=== PATIENT | female | born 1990 | race Caucasian/White ===

== ENCOUNTER 2018-04-07 10:18 | Inpatient (IN) | payer BC ==
[2018-04-07] MEDS ORDERED: Promethazine HCl 25 MG/ML VIAL IM PRN ×2 (10:58→12:29)
[2018-04-07] MEDS ORDERED: Diphenoxylate HCl/Atropine Tablet PO PRN ×2 (10:58)
[2018-04-07] MEDS ORDERED: Butorphanol Tartrate 1 MG/ML VIAL SLOW IVP PRN (10:58)
[2018-04-07] MEDS ORDERED: Ibuprofen 800 MG TAB PO PRN (10:58)
[2018-04-07] MEDS ORDERED: Lidocaine 1% (PF) 30 ML VIAL SC PRN (10:58)
[2018-04-07] MEDS ORDERED: Acetaminophen 500 MG TAB PO PRN (10:58)
[2018-04-07] MEDS ORDERED: Docusate 100 MG CAP PO PRN (10:58)
[2018-04-07] MEDS ORDERED: Misoprostol 200 MCG TAB PR PRN (10:58)
[2018-04-07] MEDS ORDERED: HYDROcodone/Acetaminophen 5/325 mg Tablet PO PRN ×2 (10:58)
[2018-04-07] MEDS ORDERED: Ondansetron PF 4 MG/2 ML Vial IVP PRN ×3 (10:58→17:34)
[2018-04-07] MEDS ORDERED: NS / Oxytocin 40 units/1000ml 1,000 ML IV PRN (10:58)
[2018-04-07] MEDS ORDERED: Penicillin G Potassium 5 MILL.UNITS in Sodium Chloride 0.9% 100 ML IVPB SCH (11:00)
[2018-04-07] MEDS ORDERED: Fentanyl 4 mcg/Bup 0.1% Cadd 100 ML ONE (11:22)
[2018-04-07] MEDS: Lactated Ringer's 1,000 ML IV SCH ×2 (11:36→14:05)
[2018-04-07 11:40] VITALS: BMI 31.1
[2018-04-07 11:57] LABS: Hemoglobin 12.6 g/dL (12.0-16.0); Mean Corpuscular HGB CONC 33.1 g/dL (32.0-36.0); Mean Corpuscular Hemoglobin 29.1 pg (27.0-31.0); Mean Corpuscular Volume 87.7 fL (78.0-98.0); Platelet Count 168 thou/uL (130-400); RBC Distribution Width 11.6 % (11.5-14.5); Red Blood Cell (RBC) Count 4.35 mill/uL (4.20-5.40); White Blood Cell (WBC) Count 10.9 thou/uL (4.8-10.8)
[2018-04-07] MEDS ORDERED: ePHEDrine/0.9% NaCl/PF SYRINGE 50 mg/10 ml SLOW IVP PRN (12:29)
[2018-04-07] MEDS ORDERED: Lactated Ringer's 500 ML IV PRN (12:29)
[2018-04-07] MEDS ORDERED: Naloxone HCl 0.4 mg/ml Vial IVP PRN ×2 (12:29)
[2018-04-07] MEDS ORDERED: Eucerin (Mineral Oil/Petrolatum,White) 30 gm Jar TOP PRN (12:29)
[2018-04-07] MEDS ORDERED: Acetaminophen 325 MG TAB PO PRN (12:29)
[2018-04-07] MEDS ORDERED: diphenhydrAMINE 50 MG/ML VIAL IVP PRN (12:29)
[2018-04-07] MEDS ORDERED: Fentanyl 4 mcg/Bupivacaine 0.1% Cassette 100 ML EPIDURAL SCH (12:30)
[2018-04-07] MEDS ORDERED: Communication Order-Pharmacy FS SCH (12:30)
[2018-04-07 12:35] LABS: Hep B Surf Ag Non-Reactive S/CO (NonReactive); Syphilis Antibody Nonreactive (Nonreactive); Syphilis Antibody Index 0.07 S/CO (<1.00 Non-Reactive)
[2018-04-07] MEDS ORDERED: Penicillin G 2.5 MILL.units 2.5 MILL.UNITS in Premix Bag 1 BAG IVPB SCH (13:00)
[2018-04-07] MEDS ORDERED: NS w/ Oxytocin 10 units 500 ML IV SCH ×2 (13:45)
[2018-04-07] MEDS ORDERED: NS w/ Oxytocin 10 units 500 ML ONE (13:47)
[2018-04-07] MEDS ORDERED: Misoprostol 200 MCG TAB VAG PRN (17:34)
[2018-04-07] MEDS ORDERED: Milk Of Magnesia 30 ML UDCUP PO PRN (17:34)
[2018-04-07] MEDS ORDERED: Lanolin Ointment 7 GM TUBE TOP PRN (17:34)
[2018-04-07] MEDS ORDERED: Adacel (T-DAP) 0.5 ML VIAL IM ONE (17:34)
[2018-04-07] MEDS ORDERED: diphenhydrAMINE 25 MG CAP PO PRN (17:34)
[2018-04-07] MEDS ORDERED: Bisacodyl 10 MG SUPP PR PRN (17:34)
[2018-04-07] MEDS ORDERED: Zolpidem Tartrate 5 MG TAB PO PRN (17:34)
[2018-04-07] MEDS ORDERED: Acetaminophen/Codeine 30-300mg Tablet PO PRN ×2 (17:34)
[2018-04-07] MEDS ORDERED: Benzocaine/Menthol 20-0.5% 60 ML CAN TOP PRN (17:34)
[2018-04-07] MEDS ORDERED: Preparation H Ointment 28 GM TUBE PR PRN (17:34)
[2018-04-07] MEDS ORDERED: NS / Oxytocin 40 units/1000ml 1,000 ML IV SCH (17:45)
[2018-04-07] MEDS: Ibuprofen 800 MG TAB PO SCH (22:19)
[2018-04-07] MEDS: Docusate Calcium (SURFAK) 240 MG CAP PO SCH (22:19)
[2018-04-08] MEDS: Ibuprofen 800 MG TAB PO SCH ×3 (05:00→20:59)
[2018-04-08 06:20] LABS: Mean Corpuscular HGB CONC 31.7 g/dL (32.0-36.0); Mean Corpuscular Hemoglobin 27.9 pg (27.0-31.0); Mean Corpuscular Volume 87.9 fL (78.0-98.0); Mean Platelet Volume 7.4 fL (7.4-10.4); Platelet Count 178 thou/uL (130-400); RBC Distribution Width 11.5 % (11.5-14.5); White Blood Cell (WBC) Count 12.7 thou/uL (4.8-10.8)
[2018-04-08] MEDS: Ferrous Sulfate 325 MG TAB PO SCH ×2 (08:27→17:04)
[2018-04-08] MEDS: Docusate Calcium (SURFAK) 240 MG CAP PO SCH ×2 (09:54→20:59)
[2018-04-08] MEDS ORDERED: Bupivacaine/Epinephrine 0.25% 30 ML VIAL ONE (18:00)
[2018-04-09] MEDS: Ibuprofen 800 MG TAB PO SCH ×3 (04:51→21:05)
[2018-04-09] MEDS: Ferrous Sulfate 325 MG TAB PO SCH ×2 (08:47→16:44)
[2018-04-09] MEDS: Docusate Calcium (SURFAK) 240 MG CAP PO SCH ×2 (15:09→21:05)
[2018-04-09 21:12] VITALS: BP 131/85; TEMP 98.1
[2018-04-10] MEDS: Ibuprofen 800 MG TAB PO SCH ×2 (06:36→16:34)
[2018-04-10] MEDS: Ferrous Sulfate 325 MG TAB PO SCH ×2 (07:59→16:34)
[2018-04-10] MEDS: Docusate Calcium (SURFAK) 240 MG CAP PO SCH (10:06)
== END 2018-04-10 16:45 | disposition home or self-care (01) | DRG 807 ==
LOC: L&D 10:23 → 3SW 20:25
PROVIDERS: ADMIT Obstetrics & Gynecology; ATTEND Obstetrics & Gynecology
PROC: 10E0XZZ Delivery of Products of Conception, External Approach (ICD-10-PCS; principal; 2018-04-07)
PROC: 10907ZC Drainage of Amniotic Fluid, Therapeutic from Products of Conception, Via Natural or Artificial Opening (ICD-10-PCS; 2018-04-07)
PROC: 4A1HXCZ Monitoring of Products of Conception, Cardiac Rate, External Approach (ICD-10-PCS; 2018-04-07)
PROC: 4A1HXFZ Monitoring of Products of Conception, Cardiac Rhythm, External Approach (ICD-10-PCS; 2018-04-07)
DX: O99.824 Streptococcus B carrier state complicating childbirth (principal); Z37.0 Single live birth; Z3A.37 37 weeks gestation of pregnancy; O76 Abnormality in fetal heart rate and rhythm complicating labor and delivery; O69.81X0 Labor and delivery complicated by cord around neck, without compression, not applicable or unspecified
CPT/HCPCS: 36415; 51702; 85027; 86780; 86850; 86900; 86901; 87340; J2001; J2540; J7050

== ENCOUNTER 2024-05-28 10:48 | Outpatient (CLI) | payer BC | END 2024-05-28 10:49 | disposition home or self-care (01) | LOC: BICMAMMO 10:48 | PROVIDERS: ATTEND Obstetrics & Gynecology | DX: Z12.31 Encounter for screening mammogram for malignant neoplasm of breast (principal); Z80.3 Family history of malignant neoplasm of breast | CPT/HCPCS: 77063; 77067 ==